=== PATIENT | male | born 1990 | race Caucasian/White ===

== ENCOUNTER 2021-04-13 18:45 | Emergency (ER) | payer BC ==
[2021-04-13] MEDS ORDERED: IPRATROPIUM 0.2 MG/ML NEB INH STA (19:33)
[2021-04-13] MEDS ORDERED: predniSONE 20 MG TABLET PO STA (19:33)
[2021-04-13] MEDS ORDERED: ALBUTEROL NEB 2.5 MG/3 ML INH STA ×2 (19:33→20:23)
--- NOTE | 2021-04-13 19:35 | ED Physician Documentation ---
History of Present Illness - Stated complaint Stated Complaint: SOA,BODYACHES,WEAK - Chief complaint Chief Complaint: General - Additonal information Additional information: 30-year-old male with a longstanding history of asthma presents emergency department with 2 days productive cough and increasing shortness of air. His albuterol is not effective at reducing his wheeze. He became acutely labored this afternoon. He reports that he recently traveled back to [facility] to live here. However he has had a difficult time getting his long-acting inhalers refilled through the [facility], [place], operated by [facility]. Denies tobacco use but does smoke canna bis. On presentation he appears labored and is leaning forward that not tripoding. Room air saturations are 98%. Review of Systems Constitutional: denies: Fever, Chills Eyes: reports: Reviewed and negative Nose: reports: Reviewed and negative Throat: reports: Reviewed and negative Cardiac: reports: Reviewed and negative Respiratory: reports: Dyspnea, Cough, Wheezing GI: reports: Reviewed and negative : reports: Reviewed and negative PD PAST MEDICAL HISTORY - Present Medications Home Medications: Ambulatory Orders Medication Instructions Recorded Confirmed Benzonatate [Tessalon] 200 mg PO TID PRN #20 cap 04/13/21 predniSONE [Deltasone] 40 mg PO DAILY 5 Days #10 tablet 04/13/21 - Allergies Allergies/Adverse Reactions: Allergies Allergy/AdvReac Type Severity Reaction Status Date / Time No Known Drug Allergies Allergy Verified 04/13/21 19:42 PD ED PE NORMAL - General General: Alert and oriented X 3, No acute distress - HEENT HEENT: PERRL - Cardiac Cardiac: RRR, No murmur, No gallop - Respiratory Respiratory: Other (Extensive expiratory wheeze in all lung abbott. Good air movement.) - Abdomen Abdomen: Normal bowel sounds, Soft, Non tender - Back Back: No CVA TTP, No spinal TTP - Extremities Extremities: No deformity - Neuro Neuro: Alert and oriented X 3 Eye Opening: Spontaneous Motor: Obeys Commands Verbal: Oriented GCS Score: 15 Results - Vitals Vitals: Vital Signs - 24 hr 04/13/21 04/13/21 04/13/21 19:20 19:55 20:09 Temperature 37.2 C Heart Rate 111 H 88 100 Respiratory 20 20 19 Rate Blood Pressure 106/66 138/84 H O2 Saturation 99 96 04/13/21 04/13/21 20:31 20:37 Temperature Heart Rate 102 H 100 Respiratory 18 18 Rate Blood Pressure 118/54 L O2 Saturation 99 Oxygen O2 Source Room air - Rads (name of study) CXR Radiology: Final report received (no acute cardiopulmonary process) PD MEDICAL DECISION MAKING - ED course Complexity details: reviewed results, re-evaluated patient, considered differential, d/w patient ED course: 30-year-old male who has a history of asthma for which he typically uses his albuterol 2-3 times a day presents emergency department with 2 days of productive cough and acutely labored breathing that began this afternoon. He presented without hypoxia but was tachypneic and had diffuse expiratory wheeze. He reports that he is fully vaccinated for COVID-19. Screening chest x-ray is without acute focal opacity. We initially gave the patient 5 mg of albuterol as well as a DuoNeb and on reassessment his labored breathing has markedly improved though he remains mildly wheezy. Therefore we did repeat another 5 mg albuterol nebulizer. Following this he is now free of wheeze. No tachypnea. Room air saturations are 97 to 100%. Patient was given an initial dose of 60 mg prednisone here in the ER and will be discharged with a 4-day burst. I have advised patient that is important he have close follow-up with his primary care provider to reestablish care and receive his long-acting inhalers. Is advised to avoid cannabis for the next few days at a minimum. Covid screen is pending. Emergent return precautions otherwise discussed. Departure - Departure Disposition: 01 Home, Self Care Clinical Impression: Asthma with acute exacerbation in adult Qualifiers: Asthma severity: moderate Asthma persistence: persistent Qualified Code(s): J45.41 - Moderate persistent asthma with (acute) exacerbation Upper respiratory infection Qualifiers: URI type: unspecified viral URI Qualified Code(s): J06.9 - Acute upper respiratory infection, unspecified Condition: Stable Record reviewed to determine appropriate education?: Yes Instructions: Asthma Dc Prescriptions: predniSONE [Deltasone] 40 mg PO DAILY 5 Days #10 tablet Benzonatate [Tessalon] 200 mg PO TID PRN #20 cap PRN Reason: Cough Comments: En were seen in the ER today for cough, congestion as well as asthma being out of control. I suspect that you have a virus that is caused an upper chest cold. Your chest x-ray does not show pneumonia. We gave you multiple albuterol treatments here in the emergency department which seems to improved your labored breathing. It is important that you fill the prescription for the prednisone at the [facility] in [place] tomorrow begin taking daily as directed for the next 5 days. I have also prescribed a cough suppressant. Long-term management of your asthma is going to be very important. A primary care doctor should be ordering you a long-acting inhaler since you are using your albuterol daily. If despite the steroids and using the albuterol/spacer at home you have a return of labored breathing, have any fevers, severe chest pain then please return immediately to the ER for a second evaluation.
--- NOTE | 2021-04-13 19:53 | XRAY Report ---
PROCEDURE: Chest 1 View X-Ray INDICATIONS: chest pain TECHNIQUE: One view of the chest was acquired. COMPARISON: None. FINDINGS: Surgical changes and devices: None. Lungs and pleura: No pleural effusions or pneumothorax. Lungs are clear. Mediastinum: Mediastinal contours appear normal. Heart size is normal. Bones and chest wall: No suspicious bony lesions. Overlying soft tissues appear unremarkable. IMPRESSION: 1. No acute cardiopulmonary disease. Reviewed by: Julius Campoverde MD on 04/13/2021 7:52 PM [facility] Approved by: Julius Campoverde MD on 04/13/2021 7:52 PM [facility] Station ID: [id number]
[2021-04-13 20:38] VITALS: BP 118/54
== END 2021-04-13 21:20 | disposition home or self-care (01) ==
LOC: ED 18:45
DX: J45.41 Moderate persistent asthma with (acute) exacerbation (principal); J06.9 Acute upper respiratory infection, unspecified; Z20.822 Contact with and (suspected) exposure to COVID-19
CPT/HCPCS: 71045; 87635; 94640; 94664; 99283; 99284; A9270; J7512

== ENCOUNTER 2023-03-14 08:12 | Outpatient (CLI) | payer OTHER, BC | END 2023-03-14 08:13 | disposition home or self-care (01) | LOC: DI.N 08:12 | PROVIDERS: ATTEND Physician Assistant Medical | DX: Z53.9 Procedure and treatment not carried out, unspecified reason (principal) ==

== ENCOUNTER 2023-03-14 08:57 | Outpatient (CLI) | payer BC ==
--- NOTE | 2023-03-14 11:59 | XRAY Report ---
PROCEDURE: Knee 3 View LT INDICATIONS: SPRAIN TO MCL OF LEFT KNEE TECHNIQUE: 3 views of the knee(s) were acquired. COMPARISON: None. FINDINGS: Bones: No displaced fracture or dislocation. Soft tissues: Mild to moderate knee joint effusion. IMPRESSION: No acute osseous abnormality. Mild to moderate knee effusion. If there is high concern for further de rangement, consider MRI evaluation. Reviewed by: Michael Felix MD on 03/14/2023 11:58 AM PST Approved by: Michael Felix MD on 03/14/2023 11:58 AM PST Station ID: [id number]
== END 2023-03-14 23:59 | disposition home or self-care (01) ==
LOC: DI.N 08:57
PROVIDERS: ATTEND Physician Assistant Medical
DX: M25.462 Effusion, left knee (principal)

== ENCOUNTER 2023-04-03 07:21 | Outpatient (CLI) | payer OTHER | END 2023-04-03 07:22 | disposition home or self-care (01) | LOC: DI.N 07:21 | PROVIDERS: ATTEND Family Medicine | DX: Z53.9 Procedure and treatment not carried out, unspecified reason (principal) ==

== ENCOUNTER 2023-05-01 14:13 | Outpatient (CLI) | payer BC, OTHER ==
--- NOTE | 2023-05-01 20:23 | MRI Report ---
PROCEDURE: KNEE WO - LT INDICATIONS: SPRAIN OF LEFT KNEE TECHNIQUE: Noncontrast sagittal PD fast spin echo and T2 fast spin echo with fat saturation, sagittal 3-D gradie nt sequence with fat saturation; coronal T1 spin echo and PD fast spin echo with fat saturation, and axial PD fast spin echo with fat saturation through the knee. COMPARISON: None. FINDINGS: Image quality: Excellent. Menisci: Horizontal oblique tear involving body and posterior horn of medial meniscus is seen extendi ng to inferior articulating surface. Peripheral displacement of medial meniscus bowing medial collate ral ligament is also seen. The lateral meniscus is intact. The meniscal root ligaments appear intact. Cruciate ligaments: The anterior cruciate ligament is thickened with intrasubstance T2 hyperintense signal. The posterior cruciate ligament is intact. Medial structures: The medial collateral ligament appears mildly thickened. Visualized portions of t he pes anserinus tendons appear normal. No abnormal bursal fluid. Lateral structures: The lateral collateral ligament, long and short heads of the biceps femoris tend on appear intact. The popliteus tendon appears normal. Iliotibial band appears normal. Anterior structures: The quadriceps and patellar tendons appear intact. Patellar alignment is andres l. No femoral trochlear dysplasia or ventral trochlear prominence. No edema in the infrapatellar fa t pad. Bones and cartilage: No bone marrow contusions or fractures. 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 Joint space: There is moderate knee joint fluid. No gross loose bodies. No Milligan's cyst. Normal ap pearing synovial plicae are incidentally noted. IMPRESSION: 1. Horizontal oblique tear involving body and posterior horn of medial meniscus extending to inferior articulating surface. No focal lateral meniscal tear. 2. Low-grade ACL sprain/intrasubstance partial thickness tear. No ACL rupture. The PCL is intact. 3. Low-grade MCL sprain. 4. Low-grade chondromalacia in medial femoral tibial compartment. No marrow edema. No fracture or dis location. Moderate joint effusion, no gross loose bodies. Reviewed by: Nicholas Clemente MD on 05/01/2023 7:46 PM PST Approved by: Nicholas Clemente MD on 05/01/2023 7:46 PM PST Station ID: [id number]
== END 2023-05-01 14:14 | disposition home or self-care (01) ==
LOC: DI 14:13
PROVIDERS: ATTEND Family Medicine
DX: S83.242A Other tear of medial meniscus, current injury, left knee, initial encounter (principal); S83.512A Sprain of anterior cruciate ligament of left knee, initial encounter; S83.412A Sprain of medial collateral ligament of left knee, initial encounter; M94.262 Chondromalacia, left knee; M25.462 Effusion, left knee

== ENCOUNTER 2023-07-03 08:45 | Outpatient (CLI) | payer OTHER, BC ==
--- NOTE | 2023-07-03 13:59 | XRAY Report ---
PROCEDURE: Knee 4 View LT INDICATIONS: LEFT KNEE PAIN TECHNIQUE: 4 views of the knee(s) were acquired. COMPARISON: 03/14/2023, 05/01/2023. FINDINGS: Bones: No fractures or dislocations. No suspicious bony lesions. Soft tissues: Small knee joint effusion. No suspicious soft tissue calcifications or masses. IMPRESSION: No acute bony abnormality. Small joint effusion. Reviewed by: Tanner Kaur MD on 07/03/2023 1:57 PM PDT Approved by: Tanner Kaur MD on 07/03/2023 1:57 PM PDT Station ID: [id number]
== END 2023-07-03 23:59 | disposition home or self-care (01) ==
LOC: DI.WOS 08:45
PROVIDERS: ATTEND Orthopaedic Surgery
DX: S83.412D Sprain of medial collateral ligament of left knee, subsequent encounter (principal); M25.462 Effusion, left knee